=== PATIENT | female | born 1990 | race Caucasian/White ===

== ENCOUNTER 2018-10-30 19:29 | Emergency (ER) | payer BC, SELFPAY ==
[2018-10-30] MEDS ORDERED: Lorazepam 2 MG/ML VIAL ONE (20:35)
[2018-10-30 21:05] LABS: #Eosinphils 0.1 thou/uL (0.0-0.7); #Lymphocytes 2.6 thou/uL (1.20-3.40); %Basophils 0.3 % (0.0-1.0); %Lymphocytes 17.8 % (21.0-51.0); %Monocytes 6.8 % (0.0-10.0); %Neutrophils 74.1 % (42.0-75.0); Hemoglobin 14.6 g/dL (12.0-16.0); Mean Corpuscular HGB CONC 33.3 g/dL (32.0-36.0); Mean Corpuscular Hemoglobin 28.1 pg (27.0-31.0); Mean Corpuscular Volume 84.2 fL (78.0-98.0); Mean Platelet Volume 7.9 fL (7.4-10.4); Platelet Count 241 thou/uL (130-400); RBC Distribution Width 12.4 % (11.5-14.5); Red Blood Cell (RBC) Count 5.18 mill/uL (4.20-5.40); White Blood Cell (WBC) Count 14.8 thou/uL (4.8-10.8)
--- NOTE | 2018-10-30 21:15 | RAD ---
UPRIGHT PORTABLE CHEST ONE VIEW: HISTORY: A 28-year-old female with a history of dyspnea and fever, and a history of asthma and wheezing. COMPARISON: 07/11/2017 FINDINGS: Monitor leads overly the chest. Heart size is within normal limits. The lungs are clear. IMPRESSION: No acute intrathoracic disease. Stable from prior study. POS: [facility]
[2018-10-30 21:39] LABS: ALT (SGPT) 21 U/L (8-55); AST (SGOT) 22 U/L (5-34); Albumin 4.1 g/dL (3.5-5.0); Alkaline Phosphatase 75 U/L (40-150); Anion Gap 15 mmol/L (10-20); BUN (Urea Nitrogen) 15 mg/dL (7.0-18.7); Bilirubin, Total 0.5 mg/dL (0.2-1.2); Calc. Creatinine Clearance 0 mL/min (70-130); Calcium 9.8 mg/dL (7.8-10.44); Carbon Dioxide 22 mmol/L (22-29); Chloride 105 mmol/L (98-107); Estimated GFR-MDRD Greater than 90; Globulin 3.8 g/dL (2.4-3.5); Glucose 88 mg/dL (70-105); Potassium 4.6 mmol/L (3.5-5.1); Protein, Total 7.9 g/dL (6.0-8.3); Sodium 137 mmol/L (136-145)
--- NOTE | 2018-11-01 15:44 | EKG ---
Test Reason : Blood Pressure : / mmHG Vent. Rate : 096 BPM Atrial Rate : 096 BPM P-R Int : 176 ms QRS Dur : 074 ms QT Int : 338 ms P-R-T Axes : 025 019 -05 degrees QTc Int : 427 ms Normal sinus rhythm Nonspecific T wave abnormality Abnormal ECG Confirmed by SALOMON LONDON, LORE ([id number]), editorial intern KEITH MAHMOOD ([id number]) on 11/01/2018 3:44:07 PM Referred By: Confirmed By:LORE LATIF MD
== END 2018-10-30 23:44 | disposition home or self-care (01) ==
LOC: ERS 19:29
DX: B34.9 Viral infection, unspecified (principal); R06.4 Hyperventilation; J45.909 Unspecified asthma, uncomplicated; F32.9 Major depressive disorder, single episode, unspecified; F41.9 Anxiety disorder, unspecified; Z79.899 Other long term (current) drug therapy
CPT/HCPCS: 71045; 80053; 85025; 87081; 87430; 87804; 93005; 96374; J2060

== ENCOUNTER 2018-12-09 17:07 | Emergency (ER) | payer SELFPAY ==
--- NOTE | 2018-12-09 18:22 | RAD ---
PORTABLE AP CHEST X-RAY 12/09/18 HISTORY: Cough and fever for four days. COMPARISON: 10/30/18. FINDINGS: The cardiac silhouette and pulmonary vasculature are within normal limits. The lungs remain clear. Th ere has been no interval change when compared to the prior exam. IMPRESSION: No acute cardiopulmonary process. POS: [facility]
== END 2018-12-09 18:30 ==
LOC: ERS 17:07
DX: H65.92 Unspecified nonsuppurative otitis media, left ear (principal); J06.9 Acute upper respiratory infection, unspecified; J45.909 Unspecified asthma, uncomplicated; F41.9 Anxiety disorder, unspecified; F32.9 Major depressive disorder, single episode, unspecified; Z79.899 Other long term (current) drug therapy
CPT/HCPCS: 71045; 94640; J7620

== ENCOUNTER 2018-12-11 11:12 | Observation (INO) | payer OTHER, SELFPAY ==
[2018-12-11 12:29] LABS: #Basophils 0.1 thou/uL (0.0-0.2); #Eosinphils 0.1 thou/uL (0.0-0.7); #Lymphocytes 1.9 thou/uL (1.20-3.40); #Monocytes 0.3 thou/uL (0.11-0.59); #Neutrophils 9.8 thou/uL (1.40-6.50); %Basophils 0.5 % (0.0-1.0); %Eosinophils 0.7 % (0.0-10.0); %Lymphocytes 15.5 % (21.0-51.0); %Monocytes 2.7 % (0.0-10.0); %Neutrophils 80.5 % (42.0-75.0); Hemoglobin 14.1 g/dL (12.0-16.0); Mean Corpuscular HGB CONC 32.4 g/dL (32.0-36.0); Mean Corpuscular Hemoglobin 27.6 pg (27.0-31.0); Mean Corpuscular Volume 85.2 fL (78.0-98.0); Mean Platelet Volume 7.5 fL (7.4-10.4); Platelet Count 234 thou/uL (130-400); RBC Distribution Width 12.1 % (11.5-14.5); Red Blood Cell (RBC) Count 5.11 mill/uL (4.20-5.40); White Blood Cell (WBC) Count 12.1 thou/uL (4.8-10.8)
[2018-12-11] MEDS ORDERED: predniSONE 20 MG TAB ONE ×2 (12:29→12:38)
[2018-12-11 12:53] LABS: ALT (SGPT) 25 U/L (8-55); AST (SGOT) 17 U/L (5-34); Albumin 4.2 g/dL (3.5-5.0); Alkaline Phosphatase 68 U/L (40-150); Anion Gap 16 mmol/L (10-20); BUN (Urea Nitrogen) 17 mg/dL (7.0-18.7); Bilirubin, Total 0.4 mg/dL (0.2-1.2); Calc. Creatinine Clearance 0 mL/min (70-130); Calcium 9.5 mg/dL (7.8-10.44); Carbon Dioxide 20 mmol/L (22-29); Chloride 106 mmol/L (98-107); Estimated GFR-MDRD 85; Globulin 3.1 g/dL (2.4-3.5); Glucose 144 mg/dL (70-105); Potassium 3.2 mmol/L (3.5-5.1); Protein, Total 7.3 g/dL (6.0-8.3); Sodium 139 mmol/L (136-145)
[2018-12-11] MEDS ORDERED: Benzonatate 100 MG CAP PO PRN (14:41)
[2018-12-11] MEDS ORDERED: diphenhydrAMINE 50 MG/ML VIAL IVP PRN (14:41)
[2018-12-11] MEDS: Sodium Chloride 0.9% 1,000 ML IV SCH (14:45)
--- NOTE | 2018-12-11 14:48 | RAD ---
TWO VIEWS CHEST: Date: 12-11-18 Provided Clinical History: Asthma, cough, fever. FINDINGS: Comparison 12-07-12. Cardiac and mediastinal silhouette is within normal limits. The lungs are free of significant opacity . No pleural fluid or pneumothorax apparent. IMPRESSION: No evidence for an acute cardiopulmonary process. POS: [facility]
[2018-12-11] MEDS ORDERED: Levofloxacin 500 mg/D5W 100 ml Premix Bag ONE (15:05)
[2018-12-11] MEDS ORDERED: Metoprolol Tartrate 25 MG TAB ONE (15:05)
[2018-12-11] MEDS ORDERED: Acetaminophen 325 MG TAB ONE (15:21)
[2018-12-11] MEDS ORDERED: Acetaminophen 650 MG Suppository ONE (15:21)
[2018-12-11] MEDS ORDERED: Metoprolol Tartrate 25 MG TAB PO SCH (16:00)
[2018-12-11] MEDS: Ipratropium Bromide 2.5 ml Neb NEB SCH ×2 (20:41→22:46)
[2018-12-11 21:43] VITALS: BMI 38.6
--- NOTE | 2018-12-11 21:59 | HP ---
CHIEF COMPLAINT: Shortness of breath. HISTORY OF PRESENT ILLNESS: The patient is a very pleasant 28-year-old female with history of asthma, who presents to the hospital with complaints of shortness of breath. The patient stated that her symptoms of upper respiratory tract infections, which including coughing, body aches and pains, and congestion started last week on Tuesday. The patient stated that she started taking neb treatments, which did not really help her symptoms. The patient then came into the ER on Tuesday. She was given a DuoNeb and was given a prescription for steroids, which she never failed. The patient stated that she went to work today, started having significant shortness of breath. At that time, she was given a neb treatment in her place of work. She continued to be very short of breath. She was given some oxygen, which did not really help her symptoms. At this time, EMS was called and the patient was brought into the hospital for further evaluation. The patient stated that she got a total of seven neb treatments and now she feels much better. The patient states that she has been having some fevers at home; however, denies any chills. The patient states that she feels that she has infection however has not received any antibiotics. PAST MEDICAL HISTORY: 1. History of asthma. 2. Hypertension. 3. Tachycardia. PAST SURGICAL HISTORY: She has had a tonsillectomy, adenoidectomy, and nasal septoplasty in 2006. 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 She also has stents in her eustachian tubes. FAMILY HISTORY: Mother has hypertension. Father has esophageal cancer. SOCIAL HISTORY: Denies any alcohol use, drug use, or smoking history. 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 REVIEW OF SYSTEMS: All negative except for the ones mentioned above in the HPI. MEDICATIONS: The patient takes metoprolol 25 mg daily for tachycardia. PHYSICAL EXAMINATION: VITAL SIGNS: As of the following; her temperature is 98.2, blood pressure 131/87, heart rate of 125, oxygen saturation 98% on room air. GENERAL: She is awake, alert, and oriented x3. Does not appear in distress. CV: Tachycardic and regular. LUNGS: Mild expiratory wheezing heard all over. She does have a pretty productive cough. ABDOMEN: Obese and soft. Bowel sounds present x2. No pain upon palpation. EXTREMITIES: No edema. Pedal pulses are present x2. NEUROVASCULAR: No focal deficits noted. SKIN: No cuts, lesions, or bruises noted. HEENT: Normocephalic, atraumatic. No lymphadenopathy noted. She does have some pain on her right ear; however, on examination of her right and left ear, there is no erythema noted. Her tympanic membrane appears to be nice and pearly bilaterally. LABORATORY RESULTS: As of the following; WBCs of 12.1, hemoglobin of 14.1, hematocrit 43.6, platelets of 234. Chemistry; sodium 139, potassium 3.2, BUN of 17, creatinine 0.81. IMAGING STUDIES: Chest x-ray, no acute findings, appears to be normal. ASSESSMENT AND PLAN: The patient is a very pleasant 28-year-old female, who presents to the hospital with complaints of shortness of breath. 1. Shortness of breath most likely secondary to asthma exacerbation versus bronchitis. Her influenza virus was negative. We will check a respiratory viral panel. We will start the patient on Levaquin. The patient states that she normally gets rash, which she receives Levaquin, ceftriaxone, and azithromycin. She broke out into a rash, however, she did not think that was because of the antibiotics. She has agreed on starting on a trial basis of the Levaquin. We will put her on ipratropium neb treatments. Also, start her on some Solu-Medrol and also will give her some Mucinex and some Tessalon Perles. 2. Mild leukocytosis could be secondary to her underlying possible infectious processes. 3. Hypokalemia. We will replace her potassium. 4. Deep venous thrombosis prophylaxis. We will put the patient on subcu Lovenox. Job ID: [id number]
[2018-12-11] MEDS ORDERED: Sodium Chloride 0.9% 10 ML ONE (22:19)
[2018-12-11] MEDS: Famotidine/PF 20 mg/2ml Vial SLOW IVP SCH (22:40)
[2018-12-11] MEDS: guaiFENesin ER 600 MG TAB PO SCH (22:40)
[2018-12-12] MEDS: Acetaminophen 325 MG TAB PO PRN ×3 (00:42→21:36)
[2018-12-12] MEDS: Ipratropium Bromide 2.5 ml Neb NEB SCH ×6 (02:40→22:37)
[2018-12-12] MEDS: Sodium Chloride 0.9% 1,000 ML IV SCH ×2 (03:19→17:44)
[2018-12-12 04:43] LABS: #Lymphocytes 1.3 thou/uL (1.20-3.40); #Monocytes 0.8 thou/uL (0.11-0.59); #Neutrophils 12.9 thou/uL (1.40-6.50); %Basophils 0.1 % (0.0-1.0); %Eosinophils 0.1 % (0.0-10.0); %Lymphocytes 8.8 % (21.0-51.0); %Monocytes 5.3 % (0.0-10.0); %Neutrophils 85.7 % (42.0-75.0); Hemoglobin 12.4 g/dL (12.0-16.0); Mean Corpuscular HGB CONC 32.5 g/dL (32.0-36.0); Mean Corpuscular Hemoglobin 27.9 pg (27.0-31.0); Mean Corpuscular Volume 86.1 fL (78.0-98.0); Mean Platelet Volume 7.4 fL (7.4-10.4); Platelet Count 250 thou/uL (130-400); RBC Distribution Width 12.2 % (11.5-14.5); Red Blood Cell (RBC) Count 4.45 mill/uL (4.20-5.40); White Blood Cell (WBC) Count 15.1 thou/uL (4.8-10.8)
[2018-12-12 05:00] LABS: Anion Gap 12 mmol/L (10-20); BUN (Urea Nitrogen) 8 mg/dL (7.0-18.7); Calc. Creatinine Clearance 171 mL/min (70-130); Calcium 9.2 mg/dL (7.8-10.44); Carbon Dioxide 23 mmol/L (22-29); Chloride 109 mmol/L (98-107); Estimated GFR-MDRD Greater than 90; Glucose 115 mg/dL (70-105); Potassium 4.4 mmol/L (3.5-5.1); Sodium 140 mmol/L (136-145)
[2018-12-12] MEDS ORDERED: Enoxaparin Sodium 40 MG/0.4 ML SYRINGE SC SCH (09:00)
[2018-12-12] MEDS: guaiFENesin ER 600 MG TAB PO SCH ×2 (09:35→21:32)
[2018-12-12] MEDS: Famotidine/PF 20 mg/2ml Vial SLOW IVP SCH ×2 (09:35→21:32)
[2018-12-12] MEDS ORDERED: Cepastat Lozenges 1 LOZ PO PRN (12:45)
--- NOTE | 2018-12-12 19:45 | PDOC.PN ---
- Subjective Encounter Start Date: 12/12/18 Encounter Start Time: 11:00 Subjective: pt up in bed feels better - Objective Resuscitation Status - Order Detail: 12/11/18 14:32 Resuscitation Status Routine Resuscitation Status: FULL: Full Resuscitation Vital Signs & Weight: Vital Signs (12 hours) Temp Pulse Resp BP Pulse Ox 12/12/18 19:17 97 16 97 12/12/18 15:00 98.0 F 124 H 24 H 131/83 99 12/12/18 12:00 98.1 F 86 20 100/55 L 97 12/12/18 09:49 71 14 98 12/12/18 07:56 98.0 F 73 20 103/55 L 95 Weight Weight 184 lb 15.838 oz I&O: 12/11/18 12/12/18 12/13/18 06:59 06:59 06:59 Intake Total 1672 1530 Balance 1672 1530 Result Diagrams: 12/12/18 04:23 12/12/18 04:23 Phys Exam - Physical Examination Neck: no nodes, no JVD, supple, full ROM Respiratory: wheezing present Cardiovascular: RRR, no significant murmur, no rub, gallop, irregular Gastrointestinal: soft, non-tender, no distention, positive bowel sounds Dx/Plan (1) Bronchitis Code(s): J40 - BRONCHITIS, NOT SPECIFIED ACUTE OR CHRONIC Status: Acute (2) Rhinovirus Code(s): B34.8 - OTHER VIRAL INFECTIONS OF UNSPECIFIED SITE Status: Acute (3) Asthma Code(s): J45.909 - UNSPECIFIED ASTHMA, UNCOMPLICATED Status: Acute - Plan will continue abx for now -: continue duoneb, mucinex * . Review of Systems - Review of Systems Respiratory: negative: Cough, Dry, Shortness of Breath, Hemoptysis, SOB with Excertion, Pleuritic Pain, Sputum, Wheezing Cardiovascular: negative: chest pain, palpitations, orthopnea, paroxysmal nocturnal dyspnea, edema, light headedness, other Gastrointestinal: negative: Nausea, Vomiting, Abdominal Pain, Diarrhea, Constipation, Melena, Hematochezia, Other - Medications/Allergies Allergies/Adverse Reactions: Allergies Allergy/AdvReac Type Severity Reaction Status Date / Time levofloxacin [From Levaquin] Allergy Mild Verified 12/11/18 20:36 azithromycin [From Zithromax] Allergy Verified 12/07/13 13:34 ceftriaxone sodium Allergy Verified 12/07/13 13:34 [From Rocephin] morphine Allergy Verified 12/07/13 13:34 oxaprozin [From Daypro] Allergy Verified 12/12/18 03:37 Medications: Current Medications Acetaminophen (Tylenol) 650 mg PO Q4H PRN PRN Reason: Headache/Fever/Mild Pain (1-3) Last Admin: 12/12/18 17:46 Dose: 650 mg Benzonatate (Tessalon) 100 mg PO TIDPRN PRN PRN Reason: Cough Diphenhydramine HCl (Benadryl) 12.5 mg IVP Q8H PRN PRN Reason: Itching Enoxaparin Sodium (Lovenox) 40 mg SC 0900 [facility] Last Admin: 12/12/18 09:35 Dose: Not Given Famotidine (Pepcid) 20 mg SLOW IVP Q12HR [facility] Last Admin: 12/12/18 09:35 Dose: 20 mg Guaifenesin (Mucinex) 600 mg PO Q12HR [facility] Last Admin: 12/12/18 09:35 Dose: 600 mg Sodium Chloride (Normal Saline 0.9%) 1,000 mls @ 75 mls/hr IV .[id number] [facility] Last Admin: 12/12/18 17:44 Dose: 1,000 mls Levofloxacin 500 mg/ Device 100 mls @ 100 mls/hr IVPB Q24HR [facility] Last Admin: 12/12/18 15:00 Dose: 100 mls Ipratropium [place] (Atrovent) 2.5 ml NEB [id number] [facility] Last Admin: 12/12/18 19:17 Dose: 2.5 ml Methylprednisolone Sodium Succinate (Solu-Medrol) 40 mg IVP DAILY [facility] Last Admin: 12/12/18 09:35 Dose: 40 mg Throat Lozenges (Cepastat Lozenges) 1 trey PO PRN PRN PRN Reason: SORE THROAT Last Admin: 12/12/18 15:00 Dose: 1 trey
[2018-12-12 22:02] VITALS: TEMP 98.2
[2018-12-13] MEDS: Ipratropium Bromide 2.5 ml Neb NEB SCH ×3 (02:26→10:49)
[2018-12-13 08:17] VITALS: BP 123/68
[2018-12-13] MEDS ORDERED: Metoprolol Tartrate 25 MG TAB PO SCH (09:00)
[2018-12-13] MEDS ORDERED: Famotidine 20 MG TAB PO SCH (21:00)
--- NOTE | 2018-12-14 06:44 | DIS ---
DATE OF ADMISSION: 12/11/2018 DATE OF DISCHARGE: 12/13/2018 DISCHARGE DIAGNOSES: As of the following; 1. Asthma exacerbation, most likely secondary to underlying bronchitis from rhinovirus. 2. Rhinovirus bronchitis. 3. Obesity. HOSPITAL COURSE: The patient is a very pleasant 28-year-old female who initially came into the hospital with shortness of breath. Please refer to my H and P for further details. She was treated initially with IV steroids. Also, I added some Levaquin. Her respiratory viral panel indicated rhinovirus. The patient continued to improve throughout the hospital stay. She was discharged. The patient stated that she does have Medrol Dosepak at home that she has a prescription for.. MEDICATIONS ARE: 1. Levaquin 500 mg daily for the next 5 days, total of 7 days. 2. She will use Medrol Dosepak that she already has a prescription for. 3. Metoprolol 25 mg b.i.d. 4. Singulair 10 mg at bedtime. 5. She is also on Xopenex breathing treatments as needed. 6. Albuterol inhaler as needed. 7. Tizanidine 4 mg p.o. p.r.n. for muscle spasms. 8. Also, she will be taking Toprol-XL 25 mg b.i.d. for her sinus tachycardia, which is her home medications. PHYSICAL EXAMINATION: VITAL SIGNS: Temperature 98.2, heart rate 60, respirations 20, oxygen saturation 97% room air, blood pressure 123/68. GENERAL: She is awake, alert, and oriented x3. Does not appear in distress. CV: S1 and S2 present. No murmurs, rubs, or gallops. LUNGS: Mild expiratory wheezing, otherwise, stable. EXTREMITIES: Lower extremity, no edema. Pedal pulses are present x2. Again, she will be discharged home. She will follow up with her primary care doctor and she is okay to return to work on Tuesday. Job ID: [id number]
== END 2018-12-13 12:45 | disposition home or self-care (01) ==
LOC: ERS 11:12 → 3SE 14:07 → ERHOLD 14:12 → 3SE 18:28
PROVIDERS: ADMIT Internal Medicine; ATTEND Internal Medicine
DX: J45.901 Unspecified asthma with (acute) exacerbation (principal); J20.6 Acute bronchitis due to rhinovirus; I10 Essential (primary) hypertension; E66.9 Obesity, unspecified; E87.6 Hypokalemia; Z68.38 Body mass index [BMI] 38.0-38.9, adult; Z90.89 Acquired absence of other organs; Z88.1 Allergy status to other antibiotic agents; Z88.5 Allergy status to narcotic agent; Z88.6 Allergy status to analgesic agent; Z79.52 Long term (current) use of systemic steroids; Z79.2 Long term (current) use of antibiotics; Z79.899 Other long term (current) drug therapy; Z98.890 Other specified postprocedural states
CPT/HCPCS: 36415; 71046; 80048; 80053; 85025; 87633; 87798; 87804; 94640; 96360; 96361; 96374; G0378; J1650; J1956; J2920; J7506; J7620; S0028

== ENCOUNTER 2021-04-29 06:44 | Outpatient (CLI) | payer OTHER | END 2021-04-29 06:45 | disposition home or self-care (01) | LOC: NM 06:44 | PROVIDERS: ATTEND Family Medicine | DX: R10.11 Right upper quadrant pain (principal) | CPT/HCPCS: 78227; A9537 ==